=== PATIENT | female | born 1995 | race Caucasian/White ===

== ENCOUNTER 2025-04-25 11:03 | Outpatient (AMB) | payer OTHER, SELFPAY ==
[2025-04-25 11:05] VITALS: BP 112/78; PULSE 91; O2SAT 98; BMI 42.7
--- NOTE | 2025-04-25 11:05 | A.OFFVIS_ITS ---
Vital Signs 04/25/25 11:05 Height 5 ft 11 in Weight 306 lb 7.08 oz BMI 42.7 BP 112/78 Blood Pressure Location Rt brachial Position Sitting Pulse 91 Pulse Source Pulse Oximeter Pulse Oximetry (%) 98 Oxygen Delivery Method Room Air Intake Visit Reasons: PCOS Intake Note: NEW Patient presents today to establish care for PCOS: No acute complaints reported at this time. Grapple Operator Required: No Accompanied by: Self / Same As Patient HPI Comments Details: 29yr old F who presents for weight management. Hx of PCOS. Was seeing Dr. Shantanu San for weight management, started on Zepbound since September 2024, but she has klist only 25-30 lbs since. She is currently on Zepbound 12.5mg. She is referred to endocrinology for diagnosis and management of PCOS. Not periods as she in on IUD (Mirena), since age 19, changed 2-3 years ago. but has regular periods before that. No excessive hair growth in face, chin, chest or back area. No clitoromagaly. No history of PCOS. Mother had hysterectomy (something was found), and premature menopause. Her main concern is weight No interest in having children and the moment. Most recent labs showed upper limit of normal Total testosterone and mildly elevated Free testosterone. No radha strech palacio in abdomen No thin skin or easy bleeding No weakness, can get up without assistance No changes im hand, foot or ring size She does have prediabetes. Has not used extensive courses of prednisone Physical exam: General: Well appearing. NAD. Looks somewhat Cushingoid, Not Acromegalic Neck/Thyroid: Thyroid not palpable, no nodules. Have some stigma of insulin resistance. No skin tags CV: RRR, no murmur. No edema. Resp:Lungs clear to auscultation bilaterally Abdomen: Soft, nontender. nondistended Extremities/Neuro: No weakness or tremor of outstretched hands Lab Results 03/22/25 Thyroid Function (Image 2) TSH: 1.180 (Ref: 0.450-4.500 uIU/mL) ? Normal Basic Metabolic Panel (Image 3) Glucose: 115 (Ref: 70-99 mg/dL) ? Above High Normal BUN: 9 (Ref: 6-20 mg/dL) ? Normal Creatinine: 0.63 (Ref: 0.57-1.00 mg/dL) ? Normal eGFR: 97 (Ref: >=9 mL/min/1.73m?) ? Normal BUN/Creatinine Ratio: 11 (Ref: 9-23) ? Normal Sodium: 141 (Ref: 134-144 mmol/L) ? Normal Potassium: 4.3 (Ref: 3.5-5.2 mmol/L) ? Normal Chloride: 105 (Ref: 96-106 mmol/L) ? Normal CO?: 20 (Ref: 20-29 mmol/L) ? Normal Calcium: 9.7 (Ref: 8.7-10.2 mg/dL) ? Normal Protein, Total: 6.6 (Ref: 6.0-8.5 g/dL) ? Normal Albumin: 4.1 (Ref: 3.9-4.9 g/dL) ? Normal Globulin, Total: 2.9 (Ref: 1.5-4.5 g/dL) ? Normal Bilirubin, Total: 0.5 (Ref: 0.0-1.2 mg/dL) ? Normal Alkaline Phosphatase: 110 (Ref: 44-121 IU/L) ? Normal AST (SGOT): 26 (Ref: 0-40 IU/L) ? Normal ALT (SGPT): 41 (Ref: 0-32 IU/L) ? Above High Normal Hemoglobin A1c (Image 4) Hemoglobin A1c: 6.0% (Ref: 4.8-5.6%) ? Above High Normal Prediabetes: 5.7-6.4% Diabetes: >6.4% Glycemic control for adults with diabetes: <7.0% Androgens (Image 5) Testosterone: 56 (Ref: 8-60 ng/dL) ? Normal Free Testosterone (Direct): 4.5 (Ref: 0.0-4.2 pg/mL) ? Above High Normal Lipid Panel (Image 6) Cholesterol, Total: 211 (Ref: 100-199 mg/dL) ? Above High Normal Triglycerides: 228 (Ref: 0-149 mg/dL) ? Above High Normal HDL Cholesterol: 43 (Ref: >39 mg/dL) ? Normal VLDL Cholesterol Real: 40 (Ref: 5-40 mg/dL) ? Normal LDL Cholesterol (NIH): 128 (Ref: 0-99 mg/dL) ? Above High Normal Additional Thyroid Panel (Image 7) TSH: 1.470 (Ref: 0.450-4.500 uIU/mL) ? Normal Free T4 (Direct): 1.05 (Ref: 0.82-1.77 ng/dL) ? Normal Repeat Basic Metabolic Panel (Image 8) Glucose: 121 (Ref: 70-99 mg/dL) ? Above High Normal BUN: 9 (Ref: 6-20 mg/dL) ? Normal Creatinine: 0.81 (Ref: 0.57-1.00 mg/dL) ? Normal eGFR: 99 (Ref: >=9 mL/min/1.73m?) ? Normal BUN/Creatinine Ratio: 12 (Ref: 9-23) ? Normal Sodium: 139 (Ref: 134-144 mmol/L) ? Normal Potassium: 4.2 (Ref: 3.5-5.2 mmol/L) ? Normal Chloride: 103 (Ref: 96-106 mmol/L) ? Normal CO?: 25 (Ref: 20-29 mmol/L) ? Normal Calcium: 9.6 (Ref: 8.7-10.2 mg/dL) ? Normal Protein, Total: 7.1 (Ref: 6.0-8.5 g/dL) ? Normal Albumin: 3.9 (Ref: 3.9-4.9 g/dL) ? Normal Globulin, Total: 3.2 (Ref: 1.5-4.5 g/dL) ? Normal Bilirubin, Total: 0.5 (Ref: 0.0-1.2 mg/dL) ? Normal Alkaline Phosphatase: 98 (Ref: 44-121 IU/L) ? Normal AST (SGOT): 17 (Ref: 0-40 IU/L) ? Normal ALT (SGPT): 33 (Ref: 0-32 IU/L) ? Above High Normal PFSH Medical History (Updated 04/25/25 @ 11:52 by Jim López MD) Rosacea PCOS (polycystic ovarian syndrome) Severe obesity (BMI >= 40) Impaired fasting glucose Fatigue Gastroesophageal reflux disease Chronic rhinitis Generalized anxiety disorder Metabolic syndrome Hyperlipidemia Surgical History (Updated 04/20/25 @ 11:37 by CAMELIA Underwood) Hx of tonsillectomy Hx of cholecystectomy Family History (Updated 04/20/25 @ 11:50 by CAMELIA Underwood) Father Malignant neoplasm metastatic to skin Mother Arthritis Malignant neoplasm of breast Anxiety disorder Maternal Grandfather Myocardial infarction Maternal Grandmother Anemia Social History (Updated 04/20/25 @ 11:36 by CAMELIA Underwood) Alcohol intake: current Alcohol intake frequency: holidays/special occasions only Patient Tobacco Use Status: Never used Tobacco Physical Exam Vital Signs: Last Vital Signs Pulse 91 04/25/25 11:05 BP 112/78 04/25/25 11:05 Pulse Ox 98 04/25/25 11:05 Oxygen Delivery Method Room Air 04/25/25 11:05 BMI result Body Mass Index 42.7 Assessment & Plan Assessment & Plan (1) Morbid obesity with BMI of 50.0-59.9, adult: Code(s): E66.01 - Morbid (severe) obesity due to excess calories; Z68.43 - Body mass index [BMI] 50.0-59.9, adult Category: Medical Plan: The patient is experiencing slow weight loss despite being on Zepbound for weight management, with a 25-30 pound weight loss since September. The current dose is 12.5 mg, with consideration of increase. Her weight is being managed by weight loss clinic. There are signs of insulin resistance, such as acanthosis nigricans, and a history of prediabetes, which may contribute to weight management challenges. Other possible contributors, such as Hope's syndrome and acromegaly, are under consideration. Plan - Discussed current findings, differential diagnosis, and next steps in evaluation. - Dexamethasone suppression test to rule out Hope's syndrome. - IGF-1 test to assess for acromegaly. - Midnight salivary cortisol tests (two tests) to further rule out Elliot's syndrome. - Discuss potential increase of Zepbound to 15 mg with weight data management consultant. - Consideration of bariatric surgery if medical management remains insufficient. (2) PCOS (polycystic ovarian syndrome): Code(s): E28.2 - Polycystic ovarian syndrome Category: Medical Plan: The patient is concerned about possible PCOS but does not seem to meet the diagnostic criteria currently. The patient denies symptoms of hirsutism or virilization and has mildly elevated free testosterone but normal total testosterone levels. The patient's use of Mirena IUD affects the ability to evaluate menstrual irregularities. A pelvic ultrasound is pending to evaluate for polycystic ovaries. She is not interested in currently on having children, not she have concerned about hirsutism. Her main concern is slow weight loss. Plan - Pelvic ultrasound (both transabdominal and transvaginal) to evaluate for polycystic ovaries. - Discussed the current assessment and the lack of meeting diagnostic criteria for PCOS. - Provided information on the significance of ultrasound findings and potential implications. - Reassess symptoms and ultrasound findings in 2-6 months. Plan 45 minutes spent reviewing previous records, labs, imaging, education and documenting in the chart Orders: Orders Saliva Cortisol Today E66.01 - Morbid (severe) obesity due to excess calories, Z68.43 - Body mass index [BMI] 50.0-59.9, adult Saliva Cortisol 1 Day E66.01 - Morbid (severe) obesity due to excess calories, Z68.43 - Body mass index [BMI] 50.0-59.9, adult IGF-1 (S[place]atomedin C) Today E66.01 - Morbid (severe) obesity due to excess calories, Z68.43 - Body mass index [BMI] 50.0-59.9, adult Cortisol Random Today E66.01 - Morbid (severe) obesity due to excess calories, Z68.43 - Body mass index [BMI] 50.0-59.9, adult US pelvic and transvaginal Today E28.2 - Polycystic ovarian syndrome Medications: New dexamethasone 1 mg PO ONCE 1 tab 0RF Patient Instructions: Patient Instructions: 1 mg Overnight Dexamethasone Suppression Test Purpose: This test helps determine if your body is producing too much cortisol, a hormone made by your adrenal glands. Preparation: Medications: Tell your provider about all medications and supplements you are taking. Some drugs (especially certain anti-seizure medications, rifampin, and estrogen) can affect test results. Illness: If you are acutely ill, postpone the test until you are well. : This test is not recommended if you are . Instructions: Obtain the Medication: You will need one 1 mg dexamethasone tablet (sometimes two 0.5 mg tablets). When to Take the Tablet: Take the entire 1 mg dose by mouth at exactly 11:00 PM (23:00) on the night before your scheduled blood test. Swallow the tablet(s) with a small amount of water. Fasting: You may eat and drink as usual before taking the tablet. Do not eat or drink anything except water after midnight until your blood is drawn the next morning. Blood Draw: Arrive at the laboratory between 8:00 and 9:00 AM the next morning for your blood test. Do not delay your blood draw; timing is critical for accurate results. Other Considerations: Avoid alcohol and strenuous exercise the evening before and the morning of the test. If you miss the dose or take it at the wrong time, notify your provider and reschedule the test. Patient Instructions: Midnight (Late-Night) Salivary Cortisol Test Purpose: This test measures the amount of cortisol in your saliva late at night, when levels should be lowest. It helps diagnose conditions of cortisol excess. Preparation: Medications: Inform your provider about all medications and supplements. Some may affect results. Oral Health: Avoid this test if you have significant gum disease or bleeding in the mouth. Lifestyle: Avoid shift work or travel across time zones in the days before the test, as this can affect your body?s cortisol rhythm. Instructions: Obtain the Collection Kit: You will receive a special saliva collection device (usually a small tube with a swab or straw). Timing: Collect the saliva sample between 11:00 PM and midnight (23:00?24:00), or as specifically instructed. Set an alarm if needed to ensure you collect at the correct time. Before Collection: Do not eat, drink, or brush your teeth for at least 30 minutes before collecting the sample. Rinse your mouth with water 10 minutes before collection, then do not eat or drink anything. Avoid tobacco, caffeine, and vigorous exercise for at least 4 hours before the test. How to Collect the Sample: Follow the kit instructions: usually, you will place the swab in your mouth and let it soak with saliva for 1?2 minutes, or spit directly into the tube. Do not touch the swab with your hands or let it touch anything else. Ensure the tube is labeled with your name, date, and exact time of collection. After Collection: Place the sample in the refrigerator immediately. Bring the sample to the laboratory or clinic as soon as possible, following the instructions provided (some kits may require freezing). Repeat Testing: Sometimes, your provider may ask for samples on two separate nights for accuracy. Coding Level of Care Code New Pt Level 4 (73056) Diagnoses Morbid obesity with BMI of 50.0-59.9, adult E66.01; Z68.43 PCOS (polycystic ovarian syndrome) E28.2
== END 2025-04-25 11:53 | disposition home or self-care (01) ==
LOC: HO.ENCR 11:03
PROVIDERS: PCP Registered Nurse; Visit Provider Student in an Organized Health Care Education/Training Program
DX: E66.01 Morbid (severe) obesity due to excess calories (principal); Z68.43 Body mass index [BMI] 50.0-59.9, adult; E28.2 Polycystic ovarian syndrome
CPT/HCPCS: 99204